=== PATIENT | male | born 1960 | race American Indian/Alaskan Native ===

== ENCOUNTER 2019-01-03 10:15 | Emergency (ER) | payer OTHER ==
[2019-01-03 10:21] VITALS: BP 124/60
--- NOTE | 2019-01-03 11:13 | Emergency Department Report ---
ED Fever HPI - General Chief Complaint: Fever Stated Complaint: BODY ACHE/FEVER Source: patient, RN notes reviewed Exam Limitations: no limitations - History of Present Illness Initial Comments: This is a 58-year-old -[place] male who presents with fever, body aches, and cough for a week. Patient states he couldn't sleep last night and felt jittery and woke up sweats this morning he is a current smoker and pack per day. Past medical history of asthma and hypertension. States these symptoms are similar to past when he was diagnosed with pneumonia. Denies nausea or vomiting, abdominal pain, weakness, myalgia, sore throat, or dizziness. 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 denies: abdominal pain, chest pain, confusion, headache, muscle aches, nausea/vomiting, rash, shortness of breath, sore throat, stiff neck, syncope, weakness ED Review of Systems ROS: Stated complaint: BODY ACHE/FEVER Other details as noted in HPI Constitutional: chills. denies: fever ENT: congestion. denies: ear pain, throat pain Respiratory: cough. denies: shortness of breath, wheezing Cardiovascular: denies: chest pain, palpitations Gastrointestinal: denies: abdominal pain, nausea, diarrhea Neurological: denies: headache, weakness, paresthesias Psychiatric: denies: anxiety, depression ED Past Medical Hx - Past Medical History Previous Medical History?: Yes Hx Hypertension: Yes Hx Asthma: Yes Additional medical history: high cholesterol - Surgical History Past Surgical History?: Yes Additional Surgical History: Left Knee X 2 - Social History Smoking Status: Never Smoker Substance Use Type: None - Medications Home Medications: Home Medications Medication Instructions Recorded Confirmed Last Taken Type SILVER sulfADIAZINE 50 GRAM 1 applicatio TP BID #1 tube 08/31/18 Unknown Rx [Thermazene 50 Gram] Benzonatate [Tessalon Perle] 100 mg PO TID PRN #30 capsule 01/03/19 Unknown Rx Cetirizine HCl [Zyrtec] 10 mg PO DAILY #30 tablet 01/03/19 Unknown Rx Fluticasone [Flonase] 1 spray NS QDAY #1 bottle 01/03/19 Unknown Rx ED Physical Exam - General Limitations: No Limitations General appearance: alert, in no apparent distress - Respiratory Respiratory exam: Present: normal lung sounds bilaterally. Absent: respiratory distress, wheezes, rales, rhonchi, stridor, chest wall tenderness - Cardiovascular Cardiovascular Exam: Present: regular rate, normal rhythm. Absent: systolic murmur, diastolic murmur, rubs, gallop - GI/Abdominal GI/Abdominal exam: Present: soft, normal bowel sounds - Neurological Exam Neurological exam: Present: alert, oriented X3, normal gait - Psychiatric Psychiatric exam: Present: normal affect, normal mood - Skin Skin exam: Present: warm, dry, intact, normal color. Absent: rash ED Course Vital Signs 01/03/19 10:18 Temperature 97.8 F Pulse Rate 73 Respiratory 16 Rate Blood Pressure 124/60 O2 Sat by Pulse 98 Oximetry ED Medical Decision Making - Radiology Data Radiology results: report reviewed ROUTINE CHEST, TWO VIEWS: Cough. PA and lateral views demonstrate the heart and mediastinal contour to be of normal size and shape. The lungs are clear and fully expanded and the soft tissues and bony structures are normal. IMPRESSION: Normal study for age. - Medical Decision Making Patient examined by me and stable. No distress noted. Vitals normal. Symptoms are susceptible of viral syndrome. He is instructed to take Tylenol or ibuprofen for aches and pains, to drink a lot of liquids to stay home and rest. Start flonase, Tessalon Perles, and cetirizine. Discharged home stable. Educated on care for viral syndrome. He was given a note to return to work in 3 days. Follow up with Primary Care Provider in 2-3 days. He will return to the emergency room if he does not get better as discussed. Critical care attestation.: If time is entered above; I have spent that time in minutes in the direct care of this critically ill patient, excluding procedure time. ED Disposition Clinical Impression: Upper respiratory infection, viral Disposition: DC-01 TO HOME OR SELFCARE Is pt being admited?: No Does the pt Need Aspirin: No Condition: Stable Instructions: Upper Respiratory Infection (ED), Cold Symptoms (ED) Additional Instructions: Symptoms are most likely coming from for infection. These infections typically do not give antibiotics. He is to take ibuprofen every 6 hours alternated with Tylenol every 4 hours pain. You may not feel like eating which is to be expected. Try eating a bland diet as tolerated. Wash hands frequently. F/U with Primary Care Provider. Return to ER if fever, SOB, or difficulty breathing after 48 hours of supportive care. Prescriptions: Fluticasone [Flonase] 1 spray NS QDAY #1 bottle Benzonatate [Tessalon Perle] 100 mg PO TID PRN #30 capsule PRN Reason: Cough Cetirizine HCl [Zyrtec] 10 mg PO DAILY #30 tablet Referrals: DANIELLE ROBLEDO MD [Primary Care Provider] - 3-5 Days [facility] [Outside] - 3-5 Days [facility] [Outside] - 3-5 Days Forms: Work/School Release Form(ED) Time of Disposition: 13:24
--- NOTE | 2019-01-03 11:56 | XRay Report ---
ROUTINE CHEST, TWO VIEWS: Cough. PA and lateral views demonstrate the heart and mediastinal contour to be of normal size and shape. The lungs are clear and fully expanded and the soft tissues and bony structures are normal. IMPRESSION: Normal study for age.
== END 2019-01-03 13:30 | disposition home or self-care (01) ==
LOC: ED 10:15
DX: J06.9 Acute upper respiratory infection, unspecified (principal); I10 Essential (primary) hypertension; J45.909 Unspecified asthma, uncomplicated; E78.00 Pure hypercholesterolemia, unspecified
CPT/HCPCS: 71046